=== PATIENT | male | born 1950 | race African-American/Black ===

== ENCOUNTER 2020-12-14 11:19 | Inpatient (IN) | payer MEDICARE, MEDICAID ==
[~2020-12-14 11:19] MED LIST: Heparin 1,000 UNITS/ML VIAL ONE
[2020-12-14 11:51] LABS: #Eosinphils 0.1 thou/uL (0.0-0.7); #Lymphocytes 1.7 thou/uL (1.20-3.40); #Monocytes 0.6 thou/uL (0.11-0.59); #Neutrophils 3.5 thou/uL (1.40-6.50); %Basophils 0.8 % (0.0-1.0); %Eosinophils 1.9 % (0.0-10.0); %Lymphocytes 28.4 % (21.0-51.0); %Monocytes 10.4 % (0.0-10.0); %Neutrophils 58.4 % (42.0-75.0); Hemoglobin 13.1 g/dL (14.0-18.0); Mean Corpuscular HGB CONC 33.6 g/dL (32.0-36.0); Mean Corpuscular Hemoglobin 29.3 pg (27.0-31.0); Mean Corpuscular Volume 87.2 fL (78.0-98.0); Mean Platelet Volume 7.4 fL (7.4-10.4); Platelet Count 226 thou/uL (130-400); RBC Distribution Width 16.8 % (11.5-14.5); Red Blood Cell (RBC) Count 4.46 mill/uL (4.70-6.10)
[2020-12-14 12:17] LABS: Albumin 3.8 g/dL (3.4-4.8)
[2020-12-14 12:19] LABS: Calcium 9.8 mg/dL (7.8-10.44); Chloride 114 mmol/L (98-107); Potassium 5.1 mmol/L (3.5-5.1); Sodium 138 mmol/L (136-145)
[2020-12-14 12:20] LABS: Globulin 3.9 g/dL (2.4-3.5); Glucose 93 mg/dL (83-110); Protein, Total 7.7 g/dL (5.8-8.1)
[2020-12-14 12:21] LABS: Anion Gap 19 mmol/L (10-20); Carbon Dioxide 10 mmol/L (23-31)
[2020-12-14 12:22] LABS: Bilirubin, Total 0.6 mg/dL (0.2-1.2)
[2020-12-14 12:23] LABS: Alkaline Phosphatase 78 U/L (40-110); Calc. Creatinine Clearance 0 mL/min (70-130)
[2020-12-14 12:24] LABS: BUN (Urea Nitrogen) 61 mg/dL (8.4-25.7)
[2020-12-14 12:25] LABS: AST (SGOT) 23 U/L (5-34)
[2020-12-14 12:26] LABS: ALT (SGPT) 16 U/L (8-55)
[2020-12-14] MEDS ORDERED: Calcium Carbonate 500 MG ChewTAB PO PRN (14:59)
[2020-12-14] MEDS ORDERED: Bisacodyl 10 MG SUPP PR PRN (14:59)
[2020-12-14] MEDS ORDERED: Ondansetron PF 4 MG/2 ML Vial IVP PRN (14:59)
[2020-12-14] MEDS ORDERED: Acetaminophen 325 MG TAB PO PRN (14:59)
[2020-12-14] MEDS ORDERED: Guaifenesin DM 100-10/5 ML UDCUP PO PRN (14:59)
[2020-12-14] MEDS ORDERED: Senokot S 8.6-50 MG TAB PO PRN (14:59)
[2020-12-14 16:56] VITALS: BMI 32.1
[2020-12-14] MEDS ORDERED: Torsemide 20 MG TAB PO SCH (17:45)
[2020-12-14 18:46] LABS: SARS-CoV-2 NAA Rapid Test Not Detected (NotDetected)
[2020-12-15] MEDS ORDERED: Amlodipine 5 MG TAB PO SCH (07:15)
[2020-12-15 07:37] LABS: #Basophils 0.1 thou/uL (0.0-0.2); #Eosinphils 0.2 thou/uL (0.0-0.7); #Lymphocytes 1.5 thou/uL (1.20-3.40); #Monocytes 0.7 thou/uL (0.11-0.59); #Neutrophils 3.1 thou/uL (1.40-6.50); %Basophils 1.1 % (0.0-1.0); %Lymphocytes 27.2 % (21.0-51.0); %Monocytes 12.6 % (0.0-10.0); Hemoglobin 12.9 g/dL (14.0-18.0); Mean Corpuscular HGB CONC 31.7 g/dL (32.0-36.0); Mean Corpuscular Volume 88.5 fL (78.0-98.0); Mean Platelet Volume 7.4 fL (7.4-10.4); Platelet Count 227 thou/uL (130-400); RBC Distribution Width 17.2 % (11.5-14.5); Red Blood Cell (RBC) Count 4.61 mill/uL (4.70-6.10); White Blood Cell (WBC) Count 5.7 thou/uL (4.8-10.8)
[2020-12-15 08:07] LABS: Albumin 3.6 g/dL (3.4-4.8); Anion Gap 14 mmol/L (10-20); BUN (Urea Nitrogen) 62 mg/dL (8.4-25.7); BUN/Creatinine Ratio 9.49; Calc. Creatinine Clearance 13 mL/min (70-130); Calcium 9.6 mg/dL (7.8-10.44); Carbon Dioxide 13 mmol/L (23-31); Chloride 116 mmol/L (98-107); Glucose 80 mg/dL (83-110); Phosphorus 4.5 mg/dL (2.3-4.7); Potassium 4.7 mmol/L (3.5-5.1); Sodium 138 mmol/L (136-145)
[2020-12-15 08:26] LABS: Hep B Core Total Ab Non-Reactive (NonReactive); Hep B Core Total Index 0.04 S/CO (0-0.79); Hep B Surf Ag Non-Reactive S/CO (NonReactive); Hep C IgG Ab Non-Reactive (NonReactive); Hep C Index 0.04 S/CO (0-0.79)
[2020-12-15 08:27] LABS: HBSAB Concentration 53.11 mIU/mL; Hep B Surf AB Reactive (NonReactive)
[2020-12-15] MEDS ORDERED: Enoxaparin Sodium 30 MG/0.3 ML SYRINGE SC SCH (09:00)
[2020-12-15] MEDS ORDERED: Activase 2 MG VIAL CATH SCH (10:15)
[2020-12-15] MEDS: Heparin 5,000 UNITS/ML VIAL SC SCH ×2 (13:02→20:10)
[2020-12-15] MEDS ORDERED: hydrALAZINE 20 MG/ML VIAL SLOW IVP PRN (20:35)
[2020-12-16] MEDS: Heparin 5,000 UNITS/ML VIAL SC SCH (08:53)
[2020-12-16] MEDS ORDERED: Heparin 10,000 UNITS/ 10 ML VIAL ONE ×2 (08:55→10:24)
[2020-12-16] MEDS ORDERED: Amlodipine 10 MG TAB PO SCH (09:00)
[2020-12-16] MEDS ORDERED: Lidocaine 1% w/Epinephrine 1:100K 20 ML VIAL ONE (10:24)
[2020-12-16] MEDS ORDERED: Bupivacaine PF 0.5% 30 ML VIAL ONE (10:24)
[2020-12-16] MEDS ORDERED: Sodium Chloride 0.9% 10 ML ONE (10:24)
[2020-12-16] MEDS ORDERED: Promethazine HCl 25 MG/ML VIAL IVPB PRN (10:36)
[2020-12-16] MEDS ORDERED: Ondansetron HCl/PF 4 MG/2 ML Vial IVP PRN (10:36)
[2020-12-16] MEDS ORDERED: Promethazine HCl 25 MG/ML VIAL IM PRN (10:36)
[2020-12-16] MEDS ORDERED: Fentanyl 100 MCG/2 ML VIAL ONE (10:53)
[2020-12-16] MEDS ORDERED: Lidocaine 1% PF 5 ML VIAL ONE (11:25)
[2020-12-16] MEDS ORDERED: PROPOFOL 200 MG/20 ML VIAL ONE (11:25)
[2020-12-16 18:03] VITALS: BP 150/97; TEMP 98.4
== END 2020-12-16 18:18 | disposition home or self-care (01) | DRG 314 ==
LOC: ERS 11:19 → T4-B 15:52 → INTOOBSV 15:52 → T4-B 16:19 → OBSVTOIN 12-15 15:12
PROVIDERS: ADMIT Internal Medicine; ATTEND Internal Medicine
PROC: B31H1ZZ Fluoroscopy of Right Upper Extremity Arteries using Low Osmolar Contrast (ICD-10-PCS; principal; 2020-12-15)
PROC: 0JH60XZ Insertion of Tunneled Vascular Access Device into Chest Subcutaneous Tissue and Fascia, Open Approach (ICD-10-PCS; 2020-12-16)
PROC: 02HV33Z Insertion of Infusion Device into Superior Vena Cava, Percutaneous Approach (ICD-10-PCS; 2020-12-16)
PROC: 5A1D70Z Performance of Urinary Filtration, Intermittent, Less than 6 Hours Per Day (ICD-10-PCS; 2020-12-16)
PROC: B548ZZA Ultrasonography of Superior Vena Cava, Guidance (ICD-10-PCS; 2020-12-16)
DX: T82.868A Thrombosis due to vascular prosthetic devices, implants and grafts, initial encounter (principal); N18.6 End stage renal disease; I12.0 Hypertensive chronic kidney disease with stage 5 chronic kidney disease or end stage renal disease; E87.2 Acidosis; Z20.822 Contact with and (suspected) exposure to COVID-19; F17.210 Nicotine dependence, cigarettes, uncomplicated; Y84.1 Kidney dialysis as the cause of abnormal reaction of the patient, or of later complication, without mention of misadventure at the time of the procedure; Z99.2 Dependence on renal dialysis
CPT/HCPCS: 36415; 36901; 36902; 71045; 76937; 80053; 80069; 85025; 86704; 86706; 86803; 87340; 90935; 93005; 93970; C1725; C1752; G0257; G0378; J0690; J1644; J2704; J3010; S0020; U0002; U0005